=== PATIENT | male | born 1955 | race Caucasian/White ===

== ENCOUNTER → 2018-07-04 | Outpatient (CLI) | payer OTHER ==
[~2018-07-04] MED LIST: AMLODIPINE BESY10 MG; ASPIRIN81 M2; HYDROCHLOROTH12.5 MG; LIPITOR 10 MG10 M1
--- NOTE | ~2018-07-04 | PATH ---
[facility] [place] [address] PATHOLOGY RPT PROCEDURE Name: SRIDHAROLE BRAVO Room #: REG CL MCody.#: [id number] Admission: 07/04/18 Date of : 51 Discharge: Report #: [id number] Path Case #: [id number] [facility] Accession Number: [id number] . 01 Material submitted: . PART A: COLON POLYP AT 30 CM PART B: POLYP AT DISTAL RECTUM . 01 Clinical history: . Pre-OP DX: Screening Post-OP DX: Colon polyp, rectal polyp . 02 Diagnosis: A. Polyp, colon polyp at 30 cm, endoscopic biopsy: - Compatible with a hyperplastic polyp. - Negative for dysplasia. . B. Polyp, at distal rectum, endoscopic biopsy: - Inflamed hyperplastic polyp. - Negative for dysplasia. (IUV:pit 07/05/2018) QTP/07/05/2018 . 02 Electronically signed: . Zoe Weiss MD, Pathologist NPI- [id number] . 01 Gross description: . A. Received in formalin labeled "Ole Waller, colon polyp at 30 cm," are 2 segments of espinoza soft tissue measuring 0.9 x 0.3 x 0.2 cm in aggregate dimensions and ranging from 0.4 to 0.5 cm in maximum dimension. The specimen is submitted entirely in cassette A1. . B. Received in formalin labeled "Ole Waller, polyp at distal rectum," is a single segment of espinoza soft tissue measuring 0.4 cm in maximum dimension. The specimen is entirely submitted in cassette B1. (TSD; 07/04/2018) TOB/TOB . 02 Pathologist provided ICD-10: K63.5, K62.1 . 02 CPT . 823350, 523481 Specimen Comment: A courtesy copy of this report has been sent to Specimen Comment: [phone], , . Specimen Comment: Report sent to ,DR ABURTO / [place] [address] PATHOLOGY RPT PROCEDURE Name: OLE WALLER SHELLY Room #: REG PRIYA Main#: [id number] Admission: 07/04/18 Date of : 51 Discharge: Report #: [id number] Path Case #: [id number] Specimen Comment: A duplicate report has been generated due to demographic updates. Performed at: [address] [facility], [place], [place] [id number] MD Adam Navarro MD Phone: [phone] Performed at: [address] [id number] MD Zoe Weiss MD Phone: [phone]
== END | disposition home or self-care (01) ==
LOC: GI 10:50
DX: Z12.11 Encounter for screening for malignant neoplasm of colon (principal); K63.5 Polyp of colon; K62.1 Rectal polyp; Z88.8 Allergy status to other drugs, medicaments and biological substances; Z79.82 Long term (current) use of aspirin; Z79.899 Other long term (current) drug therapy
CPT/HCPCS: 62110; 62900